=== PATIENT | female | born 2000 | race Caucasian/White ===

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

== ENCOUNTER → 2020-01-29 | Outpatient (CLI) | payer OTHER | LOC: OD 12:59 | PROVIDERS: ATTEND Nurse Practitioner Family | DX: R30.0 Dysuria (principal); R82.71 Bacteriuria | CPT/HCPCS: 87086 ==